=== PATIENT | female | born 2005 | race Hispanic/Latino ===

== ENCOUNTER 2023-07-14 06:16 | Inpatient (IN) | payer SELFPAY ==
[2023-07-14 07:00] LABS: #Eosinphils 0.3 thou/uL (0.0-0.7); #Monocytes 1.7 thou/uL (0.11-0.59); #Neutrophils 10.5 thou/uL (1.40-6.50); %Basophils 0.2 % (0.0-1.0); %Eosinophils 1.7 % (0.0-10.0); %Lymphocytes 21.1 % (28.0-48.0); %Monocytes 10.8 % (0.0-4.0); %Neutrophils 65.9 % (31.0-61.0); Hematocrit 44.1 % (36.0-47.0); Hemoglobin 15.2 g/dL (12.0-16.0); Mean Corpuscular HGB CONC 34.5 g/dL (32.0-36.0); Mean Corpuscular Hemoglobin 30.4 pg (25.0-35.0); Mean Corpuscular Volume 88.2 fl (78.0-98.0); Mean Platelet Volume 9.3 fL (7.4-10.4); Platelet Count 324 10x3/uL (130-400); RBC Distribution Width 13.3 % (11.5-14.5)
[2023-07-14 07:21] LABS: ALT (SGPT) 20 U/L (8-55); AST (SGOT) 19 U/L (5-30); Albumin 4.8 g/dL (3.5-5.0); Alkaline Phosphatase 109 U/L (40-100); Anion Gap 15 mmol/L (10-20); BUN (Urea Nitrogen) 11 mg/dL (8.4-21.0); Bilirubin, Total 0.6 mg/dL (0.2-1.2); Calc. Creatinine Clearance 0 mL/min (70-130); Calcium 9.5 mg/dL (7.8-10.44); Carbon Dioxide 19 mmol/L (22-29); Chloride 108 mmol/L (98-107); Estimated GFR 114; Glucose 95 mg/dL (70-105); Potassium 3.5 mmol/L (3.5-5.1); Protein, Total 7.8 g/dL (6.0-8.3); Sodium 138 mmol/L (136-145)
[2023-07-14 07:42] LABS: Pregnancy Test - Urine (BHCG) Negative (Negative); Pregu Control Background? CLEAR/WHITE (CLR/WHITE); Pregu Control Bar Appear? YES (CONTROL BAR); Specific Gravity 1.023 (1.002-1.036)
[2023-07-14 07:45] LABS: Bacteria/HPF None Seen HPF (None Seen); Bilirubin Negative (Negative); Blood, Urine Negative (Negative); CAUTI Indications for Culture Pelvic or flank pain; Clarity Turbid (Clear); Glucose, Urine (Dipstick) Normal (Negative); Ketone, Urine 20 mg/dL (Negative); Leukocyte 500 Leu/uL (Negative); Nitrite Negative (Negative); Protein, Urine (Dipstick) 10 mg/dL (Neg-Trace); RBC/HPF 0-3 HPF (0-3); Specific Gravity, Urine 1.023 (1.002-1.036); Urobilinogen 3 mg/dL (Less than 2)
[2023-07-14 07:45] LABS: SARS-CoV-2 NAA Rapid Test Not Detected (NotDetected)
[2023-07-14] MEDS ORDERED: fentaNYL 50 mcg/mL 1 mL Vial ONE (07:45)
[2023-07-14 07:46] LABS: Urine Culture Reflex No No
[2023-07-14] MEDS ORDERED: Piperacillin/Tazobactam 3.375 GM VIAL ONE (09:04)
[2023-07-14] MEDS ORDERED: Sodium Chloride 0.9% 100 ML ONE (09:04)
[2023-07-14] MEDS ORDERED: Morphine 4 MG/ML VIAL ONE (09:48)
[2023-07-14] MEDS ORDERED: Vancomycin 1 GM/200 ML (FROZEN) BAG ONE (10:33)
[2023-07-14 11:15] LABS: Prothrombin Time 13.4 sec (12.0-14.7)
[2023-07-14 11:16] LABS: PTT 33.7 sec (22.9-36.1)
[2023-07-14] MEDS ORDERED: PROPOFOL 20 ML ONE ×2 (13:08→13:40)
[2023-07-14] MEDS ORDERED: Ondansetron PF 4 MG/2 ML Vial ONE ×2 (13:08→13:50)
[2023-07-14] MEDS ORDERED: Dexamethasone 4 mg/ml Vial ONE (13:08)
[2023-07-14] MEDS ORDERED: Lidocaine 2% PF 5 ML VIAL ONE (13:08)
[2023-07-14] MEDS ORDERED: EPINEPHrine 1 MG/ML VIAL ONE (13:14)
[2023-07-14] MEDS ORDERED: Bupivacaine PF 0.5% 30 ML VIAL ONE (13:15)
[2023-07-14] MEDS ORDERED: fentaNYL PF 100 MCG/2 ML SYRINGE ONE ×2 (13:39→13:54)
[2023-07-14] MEDS ORDERED: Iopamidol 370 76% 100 ML VIAL ONE (13:45)
[2023-07-14] MEDS ORDERED: PHENYLEPHRINE-NS 100 MCG/ML 10 ML SYRINGE ONE ×2 (13:50→14:04)
[2023-07-14] MEDS ORDERED: PROPOFOL 200 MG/20 ML VIAL ONE (13:50)
[2023-07-14] MEDS ORDERED: Ketorolac Tromethamine 30 MG/ML VIAL ONE ×2 (13:50→13:52)
[2023-07-14] MEDS ORDERED: Lidocaine 1% PF 5 ML VIAL ONE (13:50)
[2023-07-14] MEDS ORDERED: Dexamethasone 20 MG/5 ML VIAL ONE (13:50)
[2023-07-14] MEDS ORDERED: Promethazine HCl 25 MG/ML VIAL IM PRN (14:22)
[2023-07-14] MEDS ORDERED: Ondansetron HCl/PF 4 MG/2 ML Vial IVP PRN (14:22)
[2023-07-14] MEDS ORDERED: Morphine Sulfate 2 MG/ML SYRINGE SLOW IVP PRN (14:22)
[2023-07-14] MEDS ORDERED: traMADol HCl 50 MG TAB PO PRN (14:41)
[2023-07-14] MEDS ORDERED: Ibuprofen 600 MG TAB PO PRN (14:41)
[2023-07-14 14:54] LABS: GC by PCR, Vaginal Swab Not Detected (NotDetected)
[2023-07-14] MEDS ORDERED: Acetaminophen 500 MG TAB PO SCH (15:30)
[2023-07-14] MEDS ORDERED: Acetaminophen 500 MG TAB ONE (16:14)
[2023-07-14 18:09] VITALS: BMI 26.3
[2023-07-14] MEDS: Doxycycline 100 MG CAP PO SCH (20:40)
[2023-07-14] MEDS: Acetaminophen 500 MG TAB PO SCH (20:48)
[2023-07-15 08:19] VITALS: BP 101/60; TEMP 97.6
[2023-07-15] MEDS: Acetaminophen 500 MG TAB PO SCH (08:37)
[2023-07-15] MEDS: Doxycycline 100 MG CAP PO SCH (08:38)
== END 2023-07-15 10:30 | disposition home or self-care (01) | DRG 747 ==
LOC: ERS 06:16 → EDBD 06:16 → SDC 11:35 → T4-B 14:45
PROVIDERS: ADMIT Specialist; ATTEND Specialist
PROC: 0UBM0ZZ Excision of Vulva, Open Approach (ICD-10-PCS; principal; 2023-07-14)
PROC: 0U9M0ZZ Drainage of Vulva, Open Approach (ICD-10-PCS; 2023-07-14)
DX: N76.4 Abscess of vulva (principal); Z11.52 Encounter for screening for COVID-19; Z79.899 Other long term (current) drug therapy
CPT/HCPCS: 36415; 71045; 72193; 80053; 81001; 81025; 83605; 85025; 85610; 85730; 86140; 87040; 87070; 87205; 87480; 87510; 87591; 87660; 88304; 93005; 96361; 96365; 96375; J0171; J1100; J1650; J1885; J2001; J2270; J2405; J2543; J2704; J3010; J3370-JW; J3490; Q9967; S0020